=== PATIENT | female | born 1970 | race African-American/Black ===

== ENCOUNTER 2018-04-30 10:06 | Emergency (ER) | payer OTHER ==
[2018-04-30 10:49] LABS: #Basophils 0.1 thou/uL (0.0-0.2); #Eosinphils 0.1 thou/uL (0.0-0.7); #Lymphocytes 1.9 thou/uL (1.20-3.40); #Monocytes 0.4 thou/uL (0.11-0.59); #Neutrophils 1.4 thou/uL (1.40-6.50); %Basophils 1.4 % (0.0-1.0); %Lymphocytes 48.6 % (21.0-51.0); %Monocytes 11.1 % (0.0-10.0); %Neutrophils 35.9 % (42.0-75.0); Hemoglobin 12.9 g/dL (12.0-16.0); Mean Corpuscular HGB CONC 32.2 g/dL (32.0-36.0); Mean Corpuscular Hemoglobin 29.6 pg (27.0-31.0); Mean Corpuscular Volume 91.7 fL (78.0-98.0); Mean Platelet Volume 7.6 fL (7.4-10.4); Platelet Count 268 thou/uL (130-400); RBC Distribution Width 11.9 % (11.5-14.5); Red Blood Cell (RBC) Count 4.35 mill/uL (4.20-5.40); White Blood Cell (WBC) Count 3.9 thou/uL (4.8-10.8)
[2018-04-30 11:01] LABS: ALT (SGPT) 15 U/L (8-55); AST (SGOT) 11 U/L (5-34); Alkaline Phosphatase 54 U/L (40-150); Anion Gap 12 mmol/L (10-20); BUN (Urea Nitrogen) 13 mg/dL (7.0-18.7); Bilirubin, Total 0.6 mg/dL (0.2-1.2); CK (CPK) 84 U/L (29-168); Calc. Creatinine Clearance 0 mL/min (70-130); Calcium 9.8 mg/dL (7.8-10.44); Carbon Dioxide 26 mmol/L (22-29); Chloride 105 mmol/L (98-107); Estimated GFR-MDRD Greater than 90; Globulin 3.2 g/dL (2.4-3.5); Glucose 90 mg/dL (70-105); Potassium 3.1 mmol/L (3.5-5.1); Protein, Total 7.2 g/dL (6.0-8.3); Sodium 140 mmol/L (136-145)
[2018-04-30 11:03] LABS: CKMB 0.4 ng/mL (0-6.6); Troponin I Less than 0.010 ng/mL (< 0.028)
[2018-04-30] MEDS ORDERED: Ketorolac Tromethamine 30 MG/ML VIAL ONE (11:38)
--- NOTE | 2018-04-30 11:46 | RAD ---
PORTABLE CHEST 1 VIEW: Date: 04/30/18 Time: 1102 hours HISTORY: Chest pain. FINDINGS/IMPRESSION: The heart size is enlarged. No lobar consolidation, pneumothoraces, olayinka pulmonary edema, or large e ffusions are seen. There is mild prominence of the pulmonary vasculature. POS: [id number]
== END 2018-04-30 11:46 | disposition home or self-care (01) ==
LOC: NAV ERS 10:06
DX: R07.82 Intercostal pain (principal); I10 Essential (primary) hypertension; E03.9 Hypothyroidism, unspecified; Z79.899 Other long term (current) drug therapy
CPT/HCPCS: 71045; 80053; 82550; 82553; 84484; 85025; 85379; 93005; 96374; J1885

== ENCOUNTER 2021-04-10 10:37 | Outpatient (CLI) | payer OTHER | END 2021-04-10 10:38 | disposition home or self-care (01) | LOC: NAV RAD 10:37 | PROVIDERS: ATTEND Physical Medicine & Rehabilitation | DX: M79.671 Pain in right foot (principal); M79.672 Pain in left foot; M19.071 Primary osteoarthritis, right ankle and foot; M24.674 Ankylosis, right foot; M20.12 Hallux valgus (acquired), left foot; M77.8 Other enthesopathies, not elsewhere classified ==

== ENCOUNTER 2024-09-07 06:56 | Emergency (ER) | payer OTHER ==
[2024-09-07] MEDS ORDERED: diphenhydrAMINE 50 MG/ML VIAL ONE (07:49)
[2024-09-07] MEDS ORDERED: methylPREDNISolone Sod Succ/PF 125 MG/2 ML VIAL ONE (07:50)
[2024-09-07] MEDS ORDERED: Famotidine/PF 20 mg/2ml Vial ONE (07:50)
== END 2024-09-07 09:53 | disposition home or self-care (01) ==
LOC: NAV ERS 06:56
DX: T78.3XXA Angioneurotic edema, initial encounter (principal); I10 Essential (primary) hypertension; Z79.899 Other long term (current) drug therapy
CPT/HCPCS: 96374; 96375; J1200; J2919; J3490

== ENCOUNTER 2025-05-11 00:30 | Emergency (ER) | payer MEDICARE, OTHER ==
[2025-05-11 01:20] LABS: Bicarbonate (HCO3v) 29.2 mmol/L (22.0-28.0); CO2 Tension (PvCO2) 50.8 mmHg (42.0-51.0); Calcium, Ionized 1.25 mmol/L (1.15-1.33); Chloride 103 mmol/L (98-107); Hemoglobin - Calc 12.6 g/dL (12.0-16.0); Potassium 3.3 mmol/L (3.5-5.1); Sodium 142 mmol/L (138-145); T. Carbon Dioxide 30.8 mmol/L (22.0-28.0); vO2 Saturation-calc 50.6 % (60.0-85.0)
[2025-05-11 01:31] LABS: ALT (SGPT) 18 U/L (Less than 34); Albumin 3.9 g/dL (3.1-4.5); Alkaline Phosphatase 66 U/L (40-110); Anion Gap 16 mmol/L (10-20); BUN (Urea Nitrogen) 17 mg/dL (9.8-20.1); Bilirubin, Total 0.4 mg/dL (0.3-1.2); Calc. Creatinine Clearance 0 mL/min (70-130); Calcium 9.6 mg/dL (7.8-10.44); Carbon Dioxide 28 mmol/L (22-29); Chloride 103 mmol/L (98-107); Globulin 3.2 g/dL (2.4-3.5); Glucose 83 mg/dL (70-105); Potassium 3.7 mmol/L (3.5-5.1); Sodium 143 mmol/L (136-145)
[2025-05-11 01:33] LABS: AST (SGOT) 19 U/L (11-34)
[2025-05-11 01:55] LABS: #Basophils 0.1 thou/uL (0.0-0.2); #Eosinophils 0.2 thou/uL (0.0-0.7); #Lymphocytes 1.9 thou/uL (1.20-3.40); #Monocytes 0.8 thou/uL (0.11-0.59); #Neutrophils 4.2 thou/uL (1.40-6.50); %Basophils 1.2 % (0.0-1.0); %Eosinophils 3.3 % (0.0-10.0); %Lymphocytes 26.1 % (21.0-51.0); %Monocytes 11.2 % (0.0-10.0); %Neutrophils 58.3 % (42.0-75.0); Hematocrit 36.3 % (36.0-47.0); Hemoglobin 12.4 g/dL (12.0-16.0); Mean Corpuscular Hemoglobin 28.9 pg (27.0-31.0); Mean Corpuscular Volume 84.8 fl (78.0-98.0); Platelet Count 306 10x3/uL (130-400); Red Blood Cell (RBC) Count 4.28 mill/uL (4.20-5.40); White Blood Cell (WBC) Count 7.3 10x3/uL (4.8-10.8)
== END 2025-05-11 03:13 | disposition short-term general hospital (02) ==
LOC: NAV ERS 00:30
DX: M79.651 Pain in right thigh (principal); I10 Essential (primary) hypertension; R79.89 Other specified abnormal findings of blood chemistry
CPT/HCPCS: 80053; 82330; 82435; 82803; 84132; 84295; 85014; 85025; 85379; 99285